=== PATIENT | female | born 1935 | race Caucasian/White ===

== ENCOUNTER 2017-04-14 18:38 | Inpatient (IN) | payer OTHER ==
[~2017-04-14] VITALS: Ht 144.8 cm; Wt 46.7 kg
[2017-04-14] MEDS ORDERED: TRAZ-144 PO (18:56)
[2017-04-14] MEDS ORDERED: ERLO25TA PO (18:56)
--- NOTE | 2017-04-14 19:02 | NUR ---
PT STATES CAN'T REMEMBER ALL OF HER MEDICATIONS NAMES AND DOSES.
[2017-04-14] MEDS ORDERED: FAMO-132 PO (19:04)
[2017-04-14] MEDS ORDERED: FLUT1DIS29 IH (19:04)
[2017-04-14 19:21] LABS: BASOPHILS % (AUTO) 0.4 % (0.0-2.0); EOSINOPHILS # (AUTO) 0.1 K/uL (0.0-0.7); EOSINOPHILS % (AUTO) 1.1 % (0.0-7.0); HEMATOCRIT 35.7 % (37-47); HEMOGLOBIN 11.6 G/DL (12.0-16.0); LYMPHOCYTES # (AUTO) 1.3 K/UL (0.8-4.8); LYMPHOCYTES % (AUTO) 15.1 % (20.5-51.5); MEAN CORPUSCULAR HEMOGLOBIN 28.9 UUG (27.0-31.0); MEAN CORPUSCULAR HGB CONC 32 g/dL (32.0-37.0); MEAN CORPUSCULAR VOLUME 89.1 FL (81.0-99.0); MONOCYTES # (AUTO) 0.5 K/UL (0.1-1.30); MONOCYTES % (AUTO) 5.7 % (0.0-11.0); NEUTROPHILS # (AUTO) 6.8 K/UL (1.8-8.9); NEUTROPHILS % (AUTO) 77.7 % (38.5-71.5); PLATELET COUNT (AUTO) 298 K/UL (150-450); RED BLOOD CELL COUNT(AUTO) 4.01 MIL/UL (4.2-5.4); WHITE BLOOD COUNT (AUTO) 8.7 K/UL (4.0-11.2)
[2017-04-14 19:26] LABS: CARBON DIOXIDE 32 mmol/L (21-32); CHLORIDE 106 mmol/L (98-107); CREATININE 1.1 mg/dL (0.6-1.3); GLUCOSE 116 mg/dL (74-106); POTASSIUM 3.5 mmol/L (3.5-5.1); UREA NITROGEN, BLOOD 17 mg/dL (7-18)
[2017-04-14 19:32] LABS: ALANINE AMINOTRANSFERASE 23 U/L (14-59); ALKALINE PHOSPHATASE 69 U/L (50-136); ASPARTATE AMINOTRANSFERASE 24 U/L (15-37); BILIRUBIN,DIRECT 0.1 mg/dL (0.0-0.2); BILIRUBIN,TOTAL 0.6 mg/dL (0.2-1.0); TOTAL PROTEIN, SERUM 7.5 g/dL (6.4-8.2)
[2017-04-14 19:34] LABS: ACETAMINOPHEN < 2.0 ug/mL (10-30)
[2017-04-14 19:35] LABS: ETHANOL < 3 MG/DL (0-0)
[2017-04-14 19:39] LABS: THYROID STIMULATING HORMONE 0.942 mIU/mL (0.358-3.740)
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
--- NOTE | 2017-04-14 19:59 | NUR ---
Ricky with crisis team called for evaluation of pt, eta approx 45 mins
[2017-04-14 20:20] LABS: *BILIRUBIN,URIN NEGATIVE (NEGATIVE); *BLOOD, URINE 2+ (NEGATIVE); *CLARITY,URINE SLIGHTLY CLOUDY (CLEAR); *COLOR,URINE YELLOW (YELLOW); *KETONES,URINE NEGATIVE (NEGATIVE); *PROTEIN,URINE TRACE (NEGATIVE); *UROBILINOGEN,URINE 0.2 E.U./dl (NORMAL); LEUKOCYTE ESTERASE ,URINE 1+ (NEGATIVE); NITRITE, URINE POSITIVE (NEGATIVE); PH,URINE 5.5 (5.0-8.0); UGLUCOSE NEGATIVE (NEGATIVE)
[2017-04-14 20:35] LABS: *AMPHETAMINE, URINE NEGATIVE (NEGATIVE); *BARBITURATE, URINE NEGATIVE (NEGATIVE); *CANNABINOID, URINE NEGATIVE (NEGATIVE); *COCCAINE, URINE NEGATIVE (NEGATIVE); *OPIATE, URINE POSITIVE (NEGATIVE); *PHENCYCLIDINE SCREEN,URINE NEGATIVE (NEGATIVE)
[2017-04-14 21:03] LABS: BACTERIA,URINE MANY /HPF (NONE SEEN); MUCUS,URINE MODERATE /LPF (0-FEW); SQUAMOUS EPITHELIAL CELL,UR FEW /HPF (NONE SEEN); WBC,URINE 20-50 /HPF (0-3)
--- NOTE | 2017-04-14 23:15 | NUR ---
CONTACTED [facility] TO VERIFY FAX WAS RECEIVED, SPOKE WITH ARTEM, SHE ADVISED FAX RECEIVED
--- NOTE | 2017-04-15 00:11 | NUR ---
CALL RECEIVED FROM ARTEM STATING ATTEMPTING TO FIND PLACEMENT FOR PT, STATES WILL RECEIVE TRANSFER INFO WITHIN 2 HOURS
[2017-04-15] MEDS ORDERED: LORAZEPAM 0.5 MG TABLET PO ONE (00:45)
[2017-04-15] MEDS ORDERED: HYDROCODONE/APAP 5-325MG TABLET PO ONE (00:45)
--- NOTE | 2017-04-15 02:37 | NUR ---
CONTACTED [facility], SPOKE WITH ARTEM WHO STATED BED FINDERS NO LONGER INVOLVED STATES [facility] WILL BE HANDLING FROM HERE ON OUT... PER ARTEM CONTACTED [facility] @ , SPOKE WITH LAURA WHO STATES [facility] HAS DISPATCHED PSYCH MAILROOM CLERK, ADVISED PT HAS BEEN WAITING FOR TRANSPORT NOT [facility], ADVISED CALLER IF PT CAN BE EVALUATED @ [facility] ER... LAURA STATES [facility] ON THEIR WAY... ADVISED BAUDILIO WHO CONTACTED [facility] TO SEE IF [facility] CAN ADMIT PT, TAPPEN SUP GAVE OK, CONTACTED LAURA WITH [facility] ADVISED [facility] WILL ADMIT HERE, LAURA STATED THAT WAS FINE...
--- NOTE | 2017-04-15 02:52 | NUR ---
Pt. admitted to MHU , under care of Dr. DIAZ/YASH, Belongs List completed, Pt is alert, oriented x 4, no resp distress noted or reported upon transfer assessment...
--- NOTE | 2017-04-15 03:11 | NUR ---
PER BAUDILIO CONTACTED [facility] SPOKE WITH STATES JOSE CASE WILL BE ASSIGNED TO .. Addendum: 04/15/17 at 0315 by CLAUDIA CALL MADE 04/14/17 @ 2250
--- NOTE | 2017-04-15 03:13 | NUR ---
PER [place]E [facility] FAXED OVER LABS, 5150 HOLD, AND FACESHEET TO BEDFINDERS [phone]
[2017-04-15] MEDS ORDERED: ZOLPIDEM 5 MG TABLET PO PRN (03:15)
[2017-04-15] MEDS ORDERED: MAG HYDROX/AL HYDROX/SIMETH 30 ML LIQUID UDC PO PRN (03:15)
[2017-04-15] MEDS ORDERED: MAGNESIUM HYDROXIDE 30 ML LIQUID UDC PO PRN (03:15)
[2017-04-15] MEDS ORDERED: ACETAMINOPHEN 325 MG TABLET PO PRN (03:15)
--- NOTE | 2017-04-15 04:57 | NUR ---
PATIENT RECEIVED FROM ER AT 0320 VIA GURNEY. PATIENT APPEARS WITH FLAT AFFECT, PATIENT COOPERATIVE WITH ADMISSION PAPERS AND ABLE TO SIGN. PATIENT ALERT/ORIENTED X3, ABLE TO MAKE NEEDS KNOWN. PATIENT DENIES SUICIDAL IDEATION, STATED " I TOOK TRAZODONE, AND CALLED 911 I HAD 1 MORE PREVIOUS ATTEMPT TRYING TO SLIT MY WRIST AND CALLED 911." NO AGGRESSIVE OR COMBATIVE BEHAVIOR, NO AGITATION NOTED, SHED STATED " I AM JUST TIRED LONG DAY." PATIENT IS AMBULATORY/SELF CARE. 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 PATIENT DENIES PAIN AT THIS TIME, WILL CONTINUE TO MONITOR. PATIENT RECEIVED PATIENT RIGHT'S HANDBOOK, AND ADVISEMENT AT BEDSIDE. PATIENT ORIENTED TO ROOM AND BATHROOM. BED IN LOWEST POSITION, BED LOCKED, AND BED ALARM ON WHILE IN BED. SKIN ASSESSMENT BILATERAL ARM UPPER AND LOWER BRUISE, LEFT BREAST RASH, RIGHT BREAST RASH, ABD. HERNIA.
[2017-04-15 05:14] VITALS: BP 122/68
[2017-04-15 07:30] VITALS: BP 118/63
[2017-04-15] MEDS: LORAZEPAM 0.5 MG TABLET PO PRN ×2 (09:57→16:38)
[2017-04-15] MEDS ORDERED: LEVOFLOXACIN 500 MG TABLET PO SCH (10:45)
[2017-04-15] MEDS ORDERED: FLUTICASONE/VILANTEROL 1 EACH BLST.W.DEV INH SCH (11:30)
[2017-04-15] MEDS ORDERED: LEVOFLOXACIN 250 MG TABLET PO SCH (11:45)
--- NOTE | 2017-04-15 12:15 | NUR ---
DC Note: Pt resides at home with her family [[address] [place], [place],[address]; [phone]].Per pt,she would like to return home upon discharge.Per daughter,the pt may not return home.However,pt has no DPOA and pt owns her residence.SW will speak with pt,family,and MD regarding appropriate discharge plans.SW will form a safe and proper discharge.
[2017-04-15] MEDS ORDERED: ESCITALOPRAM OXALATE 10 MG TABLET PO SCH (13:45)
[2017-04-15 16:00] VITALS: BP 128/68
--- NOTE | 2017-04-15 16:34 | NUR ---
DC Note 04/15/17: Spoke with Harjeet at [facility] [[address], [place], [address]; [phone]] who reported the pt will possibly be accepted into their geriatric unit today as a lateral transfer. Per Harjeet ,there is no accepting Psychiatrist at this time and he will call MHU to provide the accepting physician once there is a bed available. Spoke with pt's Alfredo THOMPSON at [place] [phone] who reported they will schedule transportation today once she is accepted by [facility]. CM reported that they will call [facility] to determine if patient will be accepted later tonight. Per Bentley Fuentes case management will call the nurses station today and provide a berry picker machine operator time if lateral transfer is confirmed. Patient is aware and agreeable with discharge plans.
[2017-04-15] MEDS ORDERED: OXYMETAZOLINE NASAL 0.05% 15 ML SPRAY NS PRN (16:45)
[2017-04-15] MEDS ORDERED: FLUTICASONE/SALMETEROL 500/50 EACH DISK.W.DEV IH SCH (17:00)
--- NOTE | 2017-04-15 17:00 | NUR ---
PT STATES "I WANT TO " AND IS TAKING A PLASTIC COMB TO HER NECK AND ATTEMPTING TO CUT HERSELF WITH IT. COMB WAS TAKEN AWAY BY 1:1 AND PT WAS REDIRECTED.
--- NOTE | 2017-04-15 18:57 | NUR ---
GPS/RN- Discharge/ transfer to [facility] Received call from [place] [facility] @[phone], spoke with Sheryl, patient has been accepted to [facility], accepting psychiatrist Dr Joseph, RM 731. patient will be picked up by basic BLS transport to go to hospital arranged by [place]. Report will be provided to Nursing station cotact # [phone]. patient to be transferred on 8137 at this time. patient informed and consented to transfer. belongings accounted for.
--- NOTE | 2017-04-15 19:12 | NUR ---
GPS/RN- SPOKE WITH DAUGHTER (KATHY @ [phone]) INFORMED OF TRANSFER TO [facility]
--- NOTE | 2017-04-15 20:15 | NUR ---
PATIENT TRANSFERRED TO [facility] VIA AMBULANCE. PATIENT AWARE OF TRANSFER, CALM AND COOPERATIVE NO AGITATION NOTED. PATIENT DENIES SI NO PLAN NOTED. PATIENT IN NO APPARENT DISTRESS. NO AGGRESSIVE OR COMBATIVE BEHAVIOR NOTED. PATIENT HAS BELONGING.
[2017-04-15] MEDS ORDERED: FAMOTIDINE 20 MG TABLET PO SCH (21:00)
[2017-04-15] MEDS ORDERED: TRAZODONE 50 MG TABLET PO SCH (21:00)
[2017-04-16] MEDS ORDERED: ERLOTINIB HCL PO SCH (09:00)
--- NOTE | 2017-04-21 10:05 | NUR ---
GABRIEL received a voicemail message from [facility] social science analyst Hiwot, asking to speak with this SW in order to locate the patient. After this GABRIEL spoke with patient's assigned MHU GABRIEL Dan, and learned that patient was transferred to [facility], GABRIEL called Chandlernarendra back at [phone] and informed him that patient is now at [facility]. GABRIEL provided Hiwot with the phone number to [facility] [phone].
== END 2017-04-15 19:45 | DRG 885 ==
LOC: ER 18:38 → GPS 04-15 02:46
PROVIDERS: ADMIT Psychiatry & Neurology Psychiatry; ATTEND Nurse Practitioner Acute Care
DX: F33.2 Major depressive disorder, recurrent severe without psychotic features (principal); J90 Pleural effusion, not elsewhere classified; J44.9 Chronic obstructive pulmonary disease, unspecified; N30.90 Cystitis, unspecified without hematuria; D64.9 Anemia, unspecified; Z90.2 Acquired absence of lung [part of]; Z92.21 Personal history of antineoplastic chemotherapy; Z79.899 Other long term (current) drug therapy; K58.9 Irritable bowel syndrome, unspecified; Z91.5 Personal history of self-harm; Z87.891 Personal history of nicotine dependence; I10 Essential (primary) hypertension; R09.81 Nasal congestion; K46.9 Unspecified abdominal hernia without obstruction or gangrene; Z98.890 Other specified postprocedural states; F41.9 Anxiety disorder, unspecified
CPT/HCPCS: 36415; 71010; 80307; 84443; 85025; 93005; G0480; G0480-TC